=== PATIENT | male | born 2000 | race Caucasian/White ===

== ENCOUNTER 2019-03-11 14:04 | Emergency (ER) | payer OTHER ==
--- NOTE | 2019-03-11 14:26 | ED ---
Headache - HPI Summary HPI Summary: This patient is a 18 year old male presenting to [facility] with a chief complaint of headache, arthralgia, and fever for the last week. 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 The patient denies rash but states he had a tick bite several weeks ago. - History Of Current Complaint Chief Complaint: EDFever Stated Complaint: HEADACE, JOINT PAIN,FEVER Time Seen by Provider: 03/11/19 14:12 Hx Obtained From: Patient Onset/Duration: Started days ago Currently Pain Is: Mild - Allergies/Home Medications Allergies/Adverse Reactions: Allergies Allergy/AdvReac Type Severity Reaction Status Date / Time pollen extracts Allergy Unknown Verified 03/11/19 14:57 Reaction Details PMH/Surg Hx/FS Hx/Imm Hx Endocrine/Hematology History: Denies: Hx Diabetes Cardiovascular History: Denies: Hx Coronary Artery Disease Infectious Disease History: No Infectious Disease History: Denies: Traveled Outside the in Last 30 Days - Family History Known Family History: Negative: Cardiac Disease - Social History Occupation: Employed Part-time Lives: With Family Substance Use Type: Denies: Heroin Review of Systems Positive: Fever Positive: Arthralgia Negative: Rash Positive: Headache All Other Systems Reviewed And Are Negative: Yes Physical Exam - Summary Physical Exam Summary: Appearance: Well appearing, no pain distress Skin: warm, dry, reflects adequate perfusion Head/face: normal Eyes: EOMI, MARCEL ENT: normal Neck: supple, non-tender Respiratory: CTA, breath sounds present Cardiovascular: RRR, pulses symmetrical Abdomen: non-tender, soft Musculoskeletal: normal, strength/ROM intact Neuro: normal, sensory motor intact, A&Ox3 Triage Information Reviewed: Yes Vital Signs On Initial Exam: Initial Vitals Temp Pulse Resp BP Pulse Ox 100 F 88 18 120/71 100 03/11/19 14:06 03/11/19 14:06 03/11/19 14:06 03/11/19 14:06 03/11/19 14:06 Vital Signs Reviewed: Yes Diagnostics - Vital Signs Vital Signs Temp Pulse Resp BP Pulse Ox 03/11/19 14:06 100 F 88 18 120/71 100 - Laboratory Result Diagrams: 03/11/19 14:47 03/11/19 14:47 Lab Statement: Any lab studies that have been ordered have been reviewed, and results considered in the medical decision making process. - Radiology CXR Radiology Interpretation Completed By: Radiologist Summary of Radiographic Findings: No radiographic evidence of cardiopulmonary disease. ED Provider has reviewed this report. Headache Course/Dx - Course Course Of Treatment: This patient is a 18 year old male presenting to [facility] with a chief complaint of headache, arthralgia, and fever for the last week. Mononucleosis test was negative. Lyme test was taken and the patient will receive the results in a few days. He will be prescribed doxycycline. A plan for discharge was discussed with the patient and he was agreeable with this plan. - Diagnoses Provider Diagnoses: Fever, Weakness Discharge - Sign-Out/Discharge Documenting (check all that apply): Patient Departure - Discharge Patient Received Moderate/Deep Sedation with Procedure: No - Discharge Plan Condition: Stable Disposition: HOME Patient Education Materials: Fever in Adults (ED) Referrals: [facility] [place] PHYSICIAN REFERRAL [Outside] - 3 Days Additional Instructions: Return to ED with any new or worsening symptoms. - Attestation Statements Document Initiated by Maryame: Yes Documenting Scribe: Edward Epperson Provider For Whom Prabhakar is Documenting (Include Credential): Eric Merrill MD Scribe Attestation: Edward Aldana, scribed for Eric Merrill MD on 03/11/19 at 1644. Status of Scribe Document: Ready
[2019-03-11 14:54] LABS: ABS Lymphocytes 1.7 10^3/ul (1.0-4.8); ABS Monocytes 1.3 10^3/ul (0-0.8); ABS Neutrophils 7.2 10^3/ul (1.5-7.7); Eosinophil % 0.2 %; Hematocrit 45 % (42-52); Hemoglobin 15.8 g/dL (14.0-18.0); Lymphocyte % 16.6 %; Mean Corpuscular HGB Conc 35 g/dL (31-36); Mean Corpuscular Hemoglobin 31 pg (27-31); Mean Corpuscular Volume 87 fL (80-94); Platelet Count 176 10^3/uL (150-450); Red Blood Count 5.17 10^6 /uL (4.18-5.48); Red Cell Distribution Width 13 % (10-15); White Blood Count 10.2 10^3/uL (3.5-10.8)
[2019-03-11 15:08] LABS: Activated Partial Thrombo Time 37.6 seconds (26.0-38.0); INR 1.29 (0.82-1.09)
[2019-03-11 15:16] LABS: Albumin 4.7 g/dL (3.2-5.2); Albumin/Globulin Ratio 1.5 (1-3); BUN/Creatinine Ratio 12.8 (8-20); EGFR African American 125.1 (>60); EGFR Non-African American 103.4 (>60); Globulin 3.1 g/dL (2-4); Potassium 4.8 mmol/L (3.5-5.0); Total Bilirubin 0.7 mg/dL (0.2-1.0); Total Protein 7.8 g/dL (6.4-8.9)
[2019-03-11 17:03] VITALS: BP 133/76
== END 2019-03-11 17:02 | disposition home or self-care (01) ==
LOC: ED 14:04
DX: R50.9 Fever, unspecified (principal); R53.1 Weakness
CPT/HCPCS: 36415; 71046; 80053; 85025; 85610; 85730; 86308; 86618; 99282